=== PATIENT | male | born 1955 | race Caucasian/White ===

== ENCOUNTER → 2017-06-06 | Outpatient (CLI) | payer SELFPAY ==
[2017-06-06 13:29] LABS: BASOPHILS # (AUTO) 0.1 X10^3/uL (0.0-0.1); BASOPHILS % (AUTO) 1.6 % (0.2-1.0); EOSINOPHILS # (AUTO) 0.7 x10^3/uL (0.0-0.2); EOSINOPHILS % (AUTO) 7.2 % (0.9-2.9); HEMATOCRIT 44.3 % (42.0-54.0); HEMOGLOBIN 15.3 g/dL (13.5-18.0); LYMPHOCYTES # (AUTO) 2.2 X10^3/uL (1.3-2.9); LYMPHOCYTES % (AUTO) 22.9 % (21.0-51.0); MEAN CORPUSCULAR HEMOGLOBIN 32.5 pg (27.0-34.0); MEAN CORPUSCULAR HGB CONC 34.5 g/dL (33.0-35.0); MEAN CORPUSCULAR VOLUME 94.3 fL (80.0-100.0); MEAN PLATELET VOLUME 8.7 fL (7.4-11.0); MONOCYTES # (AUTO) 0.5 x10^3/uL (0.3-0.8); MONOCYTES % (AUTO) 4.9 % (0.0-13.0); NEUTROPHILS % (AUTO) 63.4 % (42.0-75.0); PLATELET COUNT 216 X10^3/uL (150.0-450.0); RED CELL DISTRIBUTION WIDTH 13.1 % (11.6-16.5); WHITE BLOOD COUNT 9.5 X10^3/uL (3.6-10.0)
[2017-06-06 13:43] LABS: ALANINE AMINOTRANSFERASE 19 Units/L (12-78); ALBUMIN 4.4 g/dL (3.4-5.0); ALKALINE PHOSPHATASE 50 Units/L (46-116); ASPARTATE AMINO TRANSFERASE 13 Units/L (15-37); BLOOD UREA NITROGEN 18 mg/dL (7-18); CALCIUM 9.6 mg/dL (8.5-10.1); CARBON DIOXIDE 27.4 mmol/L (21-32); CHLORIDE 103 mmol/L (98-107); CHOL/HDL RATIO 5.1 (0.0-5.0); CHOLESTEROL 216 mg/dL (0-200); CREATININE 1.01 mg/dL (0.70-1.30); HDL CHOLESTEROL 42 mg/dL (40-60); SODIUM 139 mmol/L (136-145); TOTAL PROTEIN 7.6 g/dL (6.4-8.2); TRIGLYCERIDES 90 mg/dL (0-150); eGFR BLACK RACES > 60 (>60); eGFR NON BLACK RACES > 60 (>60)
[2017-06-06 13:56] LABS: TOTAL PSA 0.53 ng/mL (0.13-4.0)
[2017-06-06 13:59] LABS: HEMOGLOBIN A1C 5.7 % (4.5-6.2)
[2017-06-06 14:02] LABS: ERYTHROCYTE SEDIMENTATION RATE 2 MM/HOUR (0-15)
--- NOTE | 2017-06-06 14:23 | RAD ---
Examination: Abdomen with PA chest History: Abdominal pain Findings: PA chest: Normal heart size with clear lungs and pleural spaces. Abdomen: Supine and upright views demonstrate slight scattered distention of segments of small bowel and colon. The appearance does not suggest distal obstruction. No free air, ascites, mass formation i dentified. There is a 4.0 mm calcification in the left pelvis. Impression: 1. Negative PA chest. 2. Intestinal gas pattern consistent with ileus. 3. Solitary left pelvic calcification may be vascular, although a distal left ureteral stone could pr oduce similar findings. Correlate clinically. Reported By:
--- NOTE | 2017-06-06 16:21 | CT ---
History: Acute abdominal pain Study: CT of the abdomen and pelvis with 100 mL Omnipaque 350 and oral contrast Sagittal and coronal reformations were provided. Comparison: None Findings: There is a small cyst dorsally from the upper pole left kidney. There is no hydronephrosis. The liver and spleen and pancreas and adrenal glands are unremarkable. The gallbladder is unremarkab le. There is no biliary dilatation. The prostate measures at least 5.6 cm transverse diameter elevati ng the base of the bladder to the left of midline. There are moderate degenerative changes of the low er lumbar spine. There is no ascites or adenopathy or bowel distention. Impression: No acute disease demonstrated Reported By:
== END | disposition home or self-care (01) | DRG 392 ==
LOC: LAB 13:04
PROVIDERS: ATTEND Nurse Practitioner Family
DX: R10.84 Generalized abdominal pain (principal); R10.2 Pelvic and perineal pain; R35.8 Other polyuria; R30.0 Dysuria; Z83.3 Family history of diabetes mellitus
CPT/HCPCS: 36415; 74022; 74177; 80053; 80061; 83036; 84153; 85025; 85610; 85652; 85730; 86140; A4222

== ENCOUNTER → 2017-06-13 | Outpatient (CLI) | payer SELFPAY | LOC: LAB 18:33 | PROVIDERS: ATTEND Specialist | DX: N39.0 Urinary tract infection, site not specified (principal); M10.9 Gout, unspecified | CPT/HCPCS: 36415; 84550; 87086 ==

== ENCOUNTER 2017-07-27 10:04 | Emergency (ER) | payer SELFPAY ==
[2017-07-27 10:14] VITALS: BMI 22.1
[2017-07-27] MEDS ORDERED: NS 1000 ML 1,000 ML IV ONE ×2 (10:21→11:39)
[2017-07-27] MEDS ORDERED: ZOFRAN INJ 4 MG VIAL IVP ONE (10:22)
[2017-07-27] MEDS ORDERED: NS 1000 ML 1,000 ML ONE ×3 (10:22→13:22)
--- NOTE | 2017-07-27 10:26 | DR.WEAKNES ---
HPI - Time Seen Time seen: 10:20 - Primary Care Physician Primary Care Physician: HANNAH FARMER - Complaints Chief Complaint Doctors Comments: Patient had an appointment with his urologist this AM but decided to bring him the ED for evaluation of weakness of one month or longer in duration. He is being evaluated by his urologist for prostatic hypertrohy. He admits to difficulity in urinating. Patient states that he hurts all over Chief Complaint:: PT TO ER VIA EMS WITH C/O BEING WEAK , HURTING ALL OVER, AND HAVING A HARD TIME URINTING AND HAVING A BM AND THAT THIS HAS BEEN GOING ON FOR 2 MONTHS AND THAT HE IS AT THE POINT OF NO RETURN PT C/O SMOKING AND DRINKING AND HE HAS NOT DONE SO IN 2 MONTHS.. Self Treatment fo Chief Complaint: PTS FAMILY FOUND HIM NOT TO BE EATING AND HE MAY BE DEHYDRATED AND EMS WAS CALLED ,, - Source History Provided: Patient, EMS - Mode of Arrival Mode of Arrival: EMS - Timing Onset of Chief Complaint: 05/27/17 Since onset, symptoms are:: Worsened Symptom Onset: Unknown Onset of Symptoms Start Date: 07/11/17 - Duration Duration: Since Onset (two months) - Context Symptoms: Weakness History of: None Stroke Symptoms: None - Location Weakness Location: Generalized PMH - PMH Past Medical History: Yes Past Medical History Comment: PROSTATE .. Past Surgical History: No - Family History History of Family Medical Conditions: No - Social History Does patient currently use any type of tobacco product: No Have you used tobacco products in the last 12 months: Yes Type of Tobacco Use: Cigarettes Does any household member use tobacco: No Alcohol Use: None Do you use any recreational Drugs:: Yes Lives With: Alone Lives Where: Home - infectious screening In the last 2 months have you had wt loss of >10#?: NO Have you had fever, night sweats or hemotysis?: No Have you traveled outside the country in the last 6 months?: No Isolation: Standard ROS - Review of Systems Constitutional: Weakness Eyes: No Symptoms Reported ENTM: No Symptoms Reported Respiratoy: No Symptoms Reported Cardiovascular: No Symptoms Reported Gastrointestinal/Abdominal: No Symptoms Reported Genitourinary: No Symptoms Reported Neurological: No Symptoms Reported Musculoskeletal: No Symptoms Reported Integumentary: No Symptoms Reported, Other (dry) Hematologic/Lymphatic: No Symptoms Reported Endocrine: No Symptoms Reported Psychiatric: No Symptoms Reported All Other Systems: Reviewed and Negative PE - Vital Signs Vitals: Temperature 96.0 F Pulse Rate [Left Brachial] 71 Pulse Rate 82 Respiratory Rate 16 Blood Pressure [Right Arm] 141/68 Blood Pressure [Left Arm] 173/86 Blood Pressure 158/78 O2 Sat by Pulse Oximetry 100 - General General Appearance: Alert, Anxious - Head Head Exam: Normal Inspection, Atraumatic Head Exam Physical: Laceration - Eyes Eye exam: Normal Appearance Eyelids: Normal Inspection: Bilateral Pupils: Regular, Round: Bilateral Sclera/Conjunctival: Normal Inspection: Bilateral Anterior Chamber: Normal Inspection: Bilateral - ENT ENT Exam: Mucous Membranes Dry Mouth Exam: Normal Inspection - Neck Neck Exam: Normal Inspection, Full ROM - Chest Chest Inspection: Normal Inspection, Symmetric Chest Wall Rise - Respiratory Respiratory Exam: Normal Lung Sounds Bilat Respiratory Exam: Bilateral Clear to Auscultation - Cardiovascular Cardiovascular Exam: Regular Rate, Normal Rhythm - Abdominal Exam Abdominal Exam: Normal Inspection, Normal Bowel Sounds Abdominal Tenderness: negative: RUQ, RLQ, LUQ, LLQ, Epigastrium, Suprapubic, Diffuse, Mild, Moderate, Severe, Other - Extremities Extremities Exam: Normal Inspection, Full ROM - Back Back Exam: Normal Inspection, Full ROM - Neurologic Neurological Exam: Alert, Oriented X3, CN II-XII Intact Cranial Nerve Exam: EOM Function (II, III, IV, ): Normal Course - Treatment Treatment: Emergent treatment of hyperkalemia - Reevaluation 1st: Improved - Consultation Called: 12:10 (Dr Larry Segovia agreed to accept for transfer) Call Returned: 11:50 (Dr King agreed to treat patients ARF) - Education/Counseling Educated On: Treatment, Diagnosis, Prognosis ROR - Labs Reviewed Laboratory Results Reviewed?: Yes (Influenza negative) Result Diagrams: 07/27/17 10:40 07/27/17 10:40 Laboratory: WBC 13.1 X10^3/uL (3.6-10.0) H 07/27/17 10:40 RBC 4.15 X10^6/uL (4.7-6.0) L 07/27/17 10:40 Hgb 12.3 g/dL (13.5-18.0) L 07/27/17 10:40 Hct 36.9 % (42.0-54.0) L 07/27/17 10:40 MCV 88.8 fL (80.0-100.0) 07/27/17 10:40 MCH 29.6 pg (27.0-34.0) 07/27/17 10:40 MCHC 33.4 g/dL (33.0-35.0) 07/27/17 10:40 RDW 14.0 % (11.6-16.5) 07/27/17 10:40 Plt Count 213 X10^3/uL (150.0-450.0) 07/27/17 10:40 MPV 8.2 fL (7.4-11.0) 07/27/17 10:40 Neut % 89.6 % (42.0-75.0) H 07/27/17 10:40 Lymph % 3.8 % (21.0-51.0) L 07/27/17 10:40 Mccone % 5.6 % (0.0-13.0) 07/27/17 10:40 Eos % 0.5 % (0.9-2.9) L 07/27/17 10:40 Baso % 0.5 % (0.2-1.0) 07/27/17 10:40 Neut # 11.7 x10^3/uL (2.2-4.8) H 07/27/17 10:40 Lymph # 0.5 X10^3/uL (1.3-2.9) L 07/27/17 10:40 Mccone # 0.7 x10^3/uL (0.3-0.8) 07/27/17 10:40 Eos # 0.1 x10^3/uL (0.0-0.2) 07/27/17 10:40 Baso # 0.1 X10^3/uL (0.0-0.1) 07/27/17 10:40 Absolute Nucleated RBC 0.0 /100WBC 07/27/17 10:40 INR Target Range - 07/27/17 10:40 INR 1.13 (0.8-1.3) 07/27/17 10:40 PTT 30.8 SECONDS (22.9-36.5) 07/27/17 10:40 PTT Comment - 07/27/17 10:40 Sodium 129 mmol/L (136-145) L 07/27/17 10:40 Corrected Sodium 129 mmol/L (136-145) L 07/27/17 10:40 Potassium 9.4 mmol/L (3.5-5.1) H* 07/27/17 10:40 Chloride 93 mmol/L (98-107) L 07/27/17 10:40 Carbon Dioxide 9.2 mmol/L (21-32) L* 07/27/17 10:40 BUN 255 mg/dL (7-18) H 07/27/17 10:40 Creatinine 33.43 mg/dL (0.70-1.30) H 07/27/17 10:40 Est GFR (MDRD) Af Amer 2 (>60) L 07/27/17 10:40 Est GFR (MDRD) Non-Af 1 (>60) L 07/27/17 10:40 Glucose 114 mg/dL (65-99) H 07/27/17 10:40 Calcium 9.2 mg/dL (8.5-10.1) 07/27/17 10:40 Corrected Calcium 9.8 mg/dL (8.5-10.1) 07/27/17 10:40 Magnesium 3.9 mg/dL (1.7-2.9) H 07/27/17 10:40 Total Bilirubin 0.60 mg/dL (0.2-1.0) 07/27/17 10:40 AST 15 Units/L (15-37) 07/27/17 10:40 ALT 21 Units/L (12-78) 07/27/17 10:40 Alkaline Phosphatase 61 Units/L (46-116) 07/27/17 10:40 Creatine Kinase 112 Units/L (39-308) 07/27/17 10:40 CK-MB (CK-2) 3.7 ng/mL (0-4.0) 07/27/17 10:40 CK/CKMB % Calc 3.3 % (<4) 07/27/17 10:40 Troponin I < 0.02 ng/mL (0-1.5) 07/27/17 10:40 C-Reactive Protein 54.50 mg/L (0-3.0) H 07/27/17 10:40 Total Protein 7.6 g/dL (6.4-8.2) 07/27/17 10:40 Albumin 3.3 g/dL (3.4-5.0) L 07/27/17 10:40 Globulin 4.3 g/dL (2.5-4.5) 07/27/17 10:40 Albumin/Globulin Ratio 0.8 Ratio (1.1-2.1) L 07/27/17 10:40 Influenza Type A (PCR) Negative (NEGATIVE) 07/27/17 10:30 Influenza Type B (PCR) Negative (NEGATIVE) 07/27/17 10:30 - XRAY XRAY Interpreted by: Radiologist (Chest: No acute abnormality noted.) - Diagnosis Discharge Problem: Hyperkalemia, Hyponatremia, Metabolic acidemia Acute renal failure Qualifiers: Acute renal failure type: unspecified Qualified Code(s): N17.9 - Acute kidney failure, unspecified - Discharge Plan Condition: Stable - Follow ups/Referrals Follow ups/Referrals: SHELBY ELLIS [Primary Care Provider] - 3 days - Instructions
[2017-07-27] MEDS ORDERED: ZOFRAN INJ 4 MG VIAL ONE (10:41)
--- NOTE | 2017-07-27 10:45 | RAD ---
HISTORY: Body aches. Weakness. Study: AP portable chest Comparison: 06/06/2017 Findings: The lungs are clear. The heart size is normal. No acute bony abnormalities are identified. Promine nt skin folds overlie the upper chest IMPRESSION: 1. No radiographic evidence of acute cardiopulmonary disease or significant change is noted when com pared to the prior examination. Reported By:
[2017-07-27 10:56] LABS: BASOPHILS # (AUTO) 0.1 X10^3/uL (0.0-0.1); BASOPHILS % (AUTO) 0.5 % (0.2-1.0); EOSINOPHILS # (AUTO) 0.1 x10^3/uL (0.0-0.2); EOSINOPHILS % (AUTO) 0.5 % (0.9-2.9); HEMATOCRIT 36.9 % (42.0-54.0); HEMOGLOBIN 12.3 g/dL (13.5-18.0); LYMPHOCYTES # (AUTO) 0.5 X10^3/uL (1.3-2.9); LYMPHOCYTES % (AUTO) 3.8 % (21.0-51.0); MEAN CORPUSCULAR HEMOGLOBIN 29.6 pg (27.0-34.0); MEAN CORPUSCULAR HGB CONC 33.4 g/dL (33.0-35.0); MEAN CORPUSCULAR VOLUME 88.8 fL (80.0-100.0); MEAN PLATELET VOLUME 8.2 fL (7.4-11.0); MONOCYTES # (AUTO) 0.7 x10^3/uL (0.3-0.8); MONOCYTES % (AUTO) 5.6 % (0.0-13.0); NEUTROPHILS # (AUTO) 11.7 x10^3/uL (2.2-4.8); NEUTROPHILS % (AUTO) 89.6 % (42.0-75.0); PLATELET COUNT 213 X10^3/uL (150.0-450.0); RED BLOOD COUNT 4.15 X10^6/uL (4.7-6.0); WHITE BLOOD COUNT 13.1 X10^3/uL (3.6-10.0)
[2017-07-27 11:14] LABS: ALANINE AMINOTRANSFERASE 21 Units/L (12-78); ALBUMIN 3.3 g/dL (3.4-5.0); ALKALINE PHOSPHATASE 61 Units/L (46-116); ASPARTATE AMINO TRANSFERASE 15 Units/L (15-37); CALCIUM 9.2 mg/dL (8.5-10.1); CHLORIDE 93 mmol/L (98-107); CKMB % 3.3 % (<4); COR CA(FOR HYPOALB) 9.8 mg/dL (8.5-10.1); COR NA(FOR HYPERGLY) 129 mmol/L (136-145); CREATINE KINASE 112 Units/L (39-308); CREATINE KINASE MB 3.7 ng/mL (0-4.0); MAGNESIUM 3.9 mg/dL (1.7-2.9); SODIUM 129 mmol/L (136-145); TOTAL PROTEIN 7.6 g/dL (6.4-8.2); TROPONIN I < 0.02 ng/mL (0-1.5)
[2017-07-27 11:25] LABS: BLOOD UREA NITROGEN 255 mg/dL (7-18); CARBON DIOXIDE 9.2 mmol/L (21-32)
[2017-07-27 11:26] LABS: CREATININE 33.43 mg/dL (0.70-1.30); eGFR BLACK RACES 2 (>60); eGFR NON BLACK RACES 1 (>60)
[2017-07-27] MEDS ORDERED: CALCIUM GLUCONATE 10% IV ONE ×2 (11:31→11:38)
[2017-07-27] MEDS ORDERED: D50W ABBOJECT SYR IV ONE (11:31)
[2017-07-27] MEDS ORDERED: PROVENTIL NEB TX 0.083% 2.5MG/ 3ML NEB ONE (11:34)
[2017-07-27] MEDS ORDERED: PROVENTIL NEB TX 0.083% 2.5MG/ 3ML ONE (11:35)
[2017-07-27] MEDS ORDERED: HumuLIN R IV STA (11:35)
[2017-07-27] MEDS ORDERED: LASIX IVP ONE ×2 (11:38→12:11)
[2017-07-27] MEDS ORDERED: D50W ABBOJECT SYR ONE (11:38)
[2017-07-27] MEDS ORDERED: HumuLIN R ONE (11:39)
[2017-07-27] MEDS ORDERED: XYLOCAINE VISCOUS ONE (11:58)
[2017-07-27] MEDS ORDERED: XYLOCAINE VISCOUS MT ONE (11:58)
[2017-07-27 12:18] LABS: BILIRUBIN,URINE NEGATIVE (NEGATIVE); BLOOD/HEMOGLOBIN,URINE 5+ (NEGATIVE); GLUCOSE, URINE NEGATIVE (NEGATIVE); KETONES,URINE NEGATIVE (NEGATIVE); LEUKOCYTE ESTERASE ,URINE 1+ (NEGATIVE); NITRITES,URINE NEGATIVE (NEGATIVE); PROTEIN,URINE NEGATIVE (NEGATIVE); UROBILINOGEN,URINE NORMAL (NORMAL)
[2017-07-27 12:23] LABS: APPEARANCE,URINE HAZY (CLEAR); BACTERIA,URINE NEGATIVE /HPF (NEGATIVE); COLOR,URINE YELLOW (YELLOW); RBC,URINE 20-25 /HPF (NEGATIVE); SQUAMOUS EPITHELIAL CELL,UR NEGATIVE /HPF (NEGATIVE)
[2017-07-27 13:07] VITALS: BP 132/77
[2017-07-27] MEDS ORDERED: SNACK - Diabetic Appropriate PO SCH (20:00)
== END 2017-07-27 13:34 | disposition short-term general hospital (02) ==
LOC: ER 10:04
DX: E87.5 Hyperkalemia (principal); E87.1 Hypo-osmolality and hyponatremia; P19.9 Metabolic acidemia in newborn, unspecified; N17.9 Acute kidney failure, unspecified
CPT/HCPCS: 36415; 51702; 71045; 80053; 81001; 82550; 82553; 83735; 84484; 85025; 85610; 85730; 86140; 87502; 93005; 93010; 96365; 96367; 96374; 96375; 99284; 99285; J0610; J1815; J1940; J2405; J3490; J7613

== ENCOUNTER → 2017-08-12 | Outpatient (CLI) | payer SELFPAY ==
[2017-07-27 13:07] VITALS: BP 132/77
[2017-08-12 17:46] LABS: BASOPHILS # (AUTO) 0.1 X10^3/uL (0.0-0.1); EOSINOPHILS # (AUTO) 0.1 x10^3/uL (0.0-0.2); EOSINOPHILS % (AUTO) 0.7 % (0.9-2.9); HEMATOCRIT 33.1 % (42.0-54.0); HEMOGLOBIN 11.2 g/dL (13.5-18.0); LYMPHOCYTES # (AUTO) 1.9 X10^3/uL (1.3-2.9); LYMPHOCYTES % (AUTO) 18.4 % (21.0-51.0); MEAN CORPUSCULAR HEMOGLOBIN 29.3 pg (27.0-34.0); MEAN CORPUSCULAR HGB CONC 33.7 g/dL (33.0-35.0); MEAN CORPUSCULAR VOLUME 86.8 fL (80.0-100.0); MEAN PLATELET VOLUME 7.2 fL (7.4-11.0); MONOCYTES # (AUTO) 0.8 x10^3/uL (0.3-0.8); MONOCYTES % (AUTO) 8.2 % (0.0-13.0); NEUTROPHILS # (AUTO) 7.3 x10^3/uL (2.2-4.8); NEUTROPHILS % (AUTO) 71.7 % (42.0-75.0); PLATELET COUNT 787 X10^3/uL (150.0-450.0); RED BLOOD COUNT 3.81 X10^6/uL (4.7-6.0); RED CELL DISTRIBUTION WIDTH 13.5 % (11.6-16.5); WHITE BLOOD COUNT 10.2 X10^3/uL (3.6-10.0)
[2017-08-12 17:54] LABS: PLATELET MORPHOLOGY COMMENT ABNORMAL (NORMAL)
[2017-08-12 17:59] LABS: ALANINE AMINOTRANSFERASE 64 Units/L (12-78); ALBUMIN 2.8 g/dL (3.4-5.0); ALKALINE PHOSPHATASE 175 Units/L (46-116); ASPARTATE AMINO TRANSFERASE 28 Units/L (15-37); BLOOD UREA NITROGEN 15 mg/dL (7-18); CALCIUM 9.1 mg/dL (8.5-10.1); CHLORIDE 101 mmol/L (98-107); COR CA(FOR HYPOALB) 10.1 mg/dL (8.5-10.1); COR NA(FOR HYPERGLY) 138 mmol/L (136-145); CREATININE 1.08 mg/dL (0.70-1.30); SODIUM 138 mmol/L (136-145); TOTAL PROTEIN 7.8 g/dL (6.4-8.2); eGFR BLACK RACES > 60 (>60); eGFR NON BLACK RACES > 60 (>60)
== END ==
LOC: LAB 17:28
PROVIDERS: ATTEND Internal Medicine Hematology & Oncology
DX: C61 Malignant neoplasm of prostate (principal)
CPT/HCPCS: 36415; 80053; 85025

== ENCOUNTER 2017-10-13 09:26 | Inpatient (IN) | payer OTHER ==
[2017-10-13] MEDS ORDERED: ATIVAN TAB 1 MG PO PRN (11:37)
[2017-10-13] MEDS ORDERED: DULCOLAX SUPPOSITORY 10 MG RECTAL PRN (11:39)
[2017-10-13] MEDS ORDERED: LEVSIN ORAL DROPS PO PRN (11:46)
[2017-10-13] MEDS ORDERED: ROXANOL ORAL SOLN 20MG UDC PO PRN (11:48)
[2017-10-13] MEDS ORDERED: PHENERGAN SUPP 25 MG PR PRN (11:58)
[2017-10-13 11:59] VITALS: BMI 16.8
[2017-10-13] MEDS ORDERED: TYLENOL SUPP 650 MG PR PRN (11:59)
[2017-10-13] MEDS: PATIENT'S HOME MEDICATION PO PRN ×4 (12:35→18:35)
[2017-10-13] MEDS ORDERED: ELAVIL PO SCH (13:00)
[2017-10-13] MEDS ORDERED: PATIENT'S HOME MEDICATION PO PRN ×2 (13:00)
[2017-10-13] MEDS ORDERED: PATIENT'S HOME MEDICATION PO SCH (21:00)
[2017-10-13] MEDS: PATIENT'S HOME MEDICATION PO SCH ×2 (21:06)
[2017-10-14] MEDS: PATIENT'S HOME MEDICATION PO PRN ×2 (03:50→11:32)
[2017-10-14] MEDS: PATIENT'S HOME MEDICATION PO SCH ×2 (08:57)
[2017-10-14] MEDS ORDERED: HYOSCYAMINE SULFATE PO PRN (12:24)
[2017-10-14] MEDS ORDERED: TYLENOL SUPP 650 MG RECTAL PRN (12:24)
[2017-10-14] MEDS ORDERED: ATIVAN TAB 0.5 MG PO PRN (12:24)
[2017-10-14] MEDS ORDERED: DULCOLAX SUPPOSITORY 10 MG RECTAL PRN (12:24)
[2017-10-14] MEDS ORDERED: PHENERGAN SUPP 25 MG RECTAL PRN (12:24)
[2017-10-14] MEDS: ROXANOL ORAL SOLN 20MG UDC PO PRN ×3 (14:00→18:39)
[2017-10-14] MEDS: M.S. CONTIN 30 MG EXTENDED RELEASE PO SCH (20:46)
[2017-10-14] MEDS: DECADRON TAB PO SCH (20:46)
[2017-10-14] MEDS ORDERED: ELAVIL PO SCH (21:00)
[2017-10-15] MEDS: ROXANOL ORAL SOLN 20MG UDC PO PRN ×3 (04:34→12:59)
[2017-10-15] MEDS: DECADRON TAB PO SCH (09:26)
[2017-10-15] MEDS: M.S. CONTIN 30 MG EXTENDED RELEASE PO SCH (09:26)
[2017-10-15] MEDS ORDERED: COLACE CAP 100 MG PO PRN (10:10)
[2017-10-15] MEDS ORDERED: MILK OF MAGNESIA PO PRN (10:31)
[2017-10-15] MEDS ORDERED: PATIENT'S HOME MEDICATION PO PRN (15:00)
[2017-10-15] MEDS: PATIENT'S HOME MEDICATION PO PRN ×3 (15:15→22:39)
[2017-10-15] MEDS: PATIENT'S HOME MEDICATION PO SCH ×2 (20:27→20:29)
[2017-10-15] MEDS ORDERED: PATIENT'S HOME MEDICATION PO SCH (21:00)
[2017-10-16] MEDS: PATIENT'S HOME MEDICATION PO PRN ×4 (02:18→13:20)
[2017-10-16 06:20] LABS: BASOPHILS % (AUTO) 0.2 % (0.2-1.0); HEMATOCRIT 24.7 % (42.0-54.0); HEMOGLOBIN 8.3 g/dL (13.5-18.0); LYMPHOCYTES # (AUTO) 0.2 X10^3/uL (1.3-2.9); LYMPHOCYTES % (AUTO) 2.5 % (21.0-51.0); MEAN CORPUSCULAR HEMOGLOBIN 28.1 pg (27.0-34.0); MEAN CORPUSCULAR HGB CONC 33.5 g/dL (33.0-35.0); MEAN PLATELET VOLUME 8.6 fL (7.4-11.0); MONOCYTES # (AUTO) 0.6 x10^3/uL (0.3-0.8); MONOCYTES % (AUTO) 7.6 % (0.0-13.0); NEUTROPHILS # (AUTO) 7.4 x10^3/uL (2.2-4.8); NEUTROPHILS % (AUTO) 89.7 % (42.0-75.0); PLATELET COUNT 124 X10^3/uL (150.0-450.0); RED BLOOD COUNT 2.94 X10^6/uL (4.7-6.0); RED CELL DISTRIBUTION WIDTH 17.2 % (11.6-16.5); WHITE BLOOD COUNT 8.2 X10^3/uL (3.6-10.0)
[2017-10-16 06:44] LABS: ALANINE AMINOTRANSFERASE 40 Units/L (12-78); ALBUMIN 2.5 g/dL (3.4-5.0); ALKALINE PHOSPHATASE 513 Units/L (46-116); ASPARTATE AMINO TRANSFERASE 19 Units/L (15-37); BLOOD UREA NITROGEN 23 mg/dL (7-18); CALCIUM 7.9 mg/dL (8.5-10.1); CARBON DIOXIDE 22.9 mmol/L (21-32); CHLORIDE 104 mmol/L (98-107); COR CA(FOR HYPOALB) 9.1 mg/dL (8.5-10.1); CREATININE 0.78 mg/dL (0.70-1.30); SODIUM 136 mmol/L (136-145); TOTAL PROTEIN 5.7 g/dL (6.4-8.2); eGFR BLACK RACES > 60 (>60); eGFR NON BLACK RACES > 60 (>60)
[2017-10-16 06:46] LABS: BAND NEUTROPHILS % 3 % (0-10)
[2017-10-16 06:49] LABS: PLATELET MORPHOLOGY COMMENT NORMAL (NORMAL)
[2017-10-16 06:50] LABS: HYPOCHROMASIA SLIGHT
[2017-10-16] MEDS: PATIENT'S HOME MEDICATION PO SCH ×2 (08:43)
--- NOTE | 2017-10-16 10:26 | PCM.PROG ---
Progress Note - Progress Note for Day of Date: 10/16/17 - Subjective Subjective: WAS ADMITTED FROM THE HOSPICE HOUSE IN [place], [place] FOR GENERALIZED WEAKNESS, POOR APPETITIE, AND INTRACTABLE PAIN RELATED TO METASTATIC PROSTACE CANCER WITH BRAIN, LIVER, AND LUNG METS. TODAY, HE IS ALERT AND ORIENTED, LYING IN BED ON MORNING ROUNDS. HE CONTINUES WITH COMPLAINTS OF GENERALIZED WEAKNESS AND GENERALIZED PAIN. PATIENT REPORTS THAT PAIN IS TOLERABLE AT THIS TIME. ON EXAMINATION, HEART IS REGULAR IN RATE AND RHYTHM. BILATERAL LUNGS ARE NOTED WITH DIMINISHED LUNG SOUNDS THROGHOUT. DECREASED SKIN TUGOR IS NOTED. ABDOMEN IS FLAT, SOFT, AND NON-TENDER WITH NORMAL BOWEL SOUNDS NOTED IN ALL QUADRANTS. THERE IS GENERALIZED WEAKNESS TO ALL EXTREMITIES NOTED. HIS VITALS THIS MORNING WERE 98.3-75-20-98%-119/66. LABS WERE OBTAINED. ABNORMAL LAB VALUES INCLUDE THE FOLLOWING: RBC 2.94, HGB 8.3, HCT 24.7, PLT COUNT 124, BUN 23, GLUCOSE 104, CALCIUM 7.9, ALKALINE PHOSPHATASE 513, TOTAL PROTEIN 5.7, ALBUMIN 2.5. WE WILL CONTINUE WITH CURRENT PLAN OF CARE AND PAIN CONTROL TODAY AND HAVE CONSULT WITH PATIENT WHILE HE IS HERE. OTHERWISE, WE WILL FOLLOW UP WITH AM LABS AND CONTINUE TO MONITOR PATIENT. - Past Medical Family Social History Past Med/Fam/Surg Hx: No changes since H&P Allergies: Allergies No Known Drug Allergies Allergy (Verified 07/27/17 10:08) - Review of Systems ROS: No change since H&P - Vital Signs and I&O's Vital Signs: Temperature 98.3 F Pulse Rate [Right Brachial] 75 Respiratory Rate 20 Blood Pressure [Right Arm] 119/66 Blood Pressure [Left Arm] 132/77 Blood Pressure 132/77 O2 Sat by Pulse Oximetry 98 Intake and Output: Intake & Output 10/13/17 10/14/17 10/15/17 10/16/17 11:59 11:59 11:59 11:59 Intake Total 1920 1220 1100 Output Total 2383 893 5096 Balance 210 520 -575 - Physical Exam Oriented: Normal Eyes: Normal Ear: Normal Nose: Normal Throat: Normal Respiratory: Generalized, Diminished Cardiovascular: Normal : Normal Auscultation: Bowel Sounds: Normal Palpation: Normal Tenderness: Normal Skin: Normal Musculoskeletal: Tender Psychiatric: Normal Mood Description: Calm Affect: Normal Speech Pattern: Clear, Appropriate - Laboratory and Diagnostics Result Diagrams: 10/16/17 05:09 10/16/17 05:09 Labs: Laboratory WBC 8.2 X10^3/uL (3.6-10.0) 10/16/17 05:09 RBC 2.94 X10^6/uL (4.7-6.0) L 10/16/17 05:09 Hgb 8.3 g/dL (13.5-18.0) L 10/16/17 05:09 Hct 24.7 % (42.0-54.0) L 10/16/17 05:09 MCV 84.0 fL (80.0-100.0) 10/16/17 05:09 MCH 28.1 pg (27.0-34.0) 10/16/17 05:09 MCHC 33.5 g/dL (33.0-35.0) 10/16/17 05:09 RDW 17.2 % (11.6-16.5) H 10/16/17 05:09 Plt Count 124 X10^3/uL (150.0-450.0) L 10/16/17 05:09 Plt Count Comment Adequate (ADEQUATE) 10/16/17 05:09 MPV 8.6 fL (7.4-11.0) 10/16/17 05:09 Neut % (Auto) 89.7 % (42.0-75.0) H 10/16/17 05:09 Lymph % (Auto) 2.5 % (21.0-51.0) L 10/16/17 05:09 Sutter % (Auto) 7.6 % (0.0-13.0) 10/16/17 05:09 Eos % (Auto) 0.0 % (0.9-2.9) L 10/16/17 05:09 Baso % (Auto) 0.2 % (0.2-1.0) 10/16/17 05:09 Neut # (Auto) 7.4 x10^3/uL (2.2-4.8) H 10/16/17 05:09 Lymph # (Auto) 0.2 X10^3/uL (1.3-2.9) L 10/16/17 05:09 Sutter # (Auto) 0.6 x10^3/uL (0.3-0.8) 10/16/17 05:09 Eos # (Auto) 0.0 x10^3/uL (0.0-0.2) 10/16/17 05:09 Baso # (Auto) 0.0 X10^3/uL (0.0-0.1) 10/16/17 05:09 Absolute Nucleated RBC 0.1 /100WBC 10/16/17 05:09 Total Counted 100 10/16/17 05:09 Neutrophils % (Manual) 94 % (39-76) H 10/16/17 05:09 Band Neutrophils % 3 % (0-10) 10/16/17 05:09 Lymphocytes % (Manual) 2 % (13-43) L 10/16/17 05:09 Monocytes % (Manual) 1 % (4-9) L 10/16/17 05:09 Plt Morphology Comment Normal (NORMAL) 10/16/17 05:09 RBC Morphology Normal (NORMAL) 10/16/17 05:09 Hypochromasia Slight A 10/16/17 05:09 Sodium 136 mmol/L (136-145) 10/16/17 05:09 Corrected Sodium TNP 10/16/17 05:09 Potassium 4.3 mmol/L (3.5-5.1) 10/16/17 05:09 Chloride 104 mmol/L (98-107) 10/16/17 05:09 Carbon Dioxide 22.9 mmol/L (21-32) 10/16/17 05:09 BUN 23 mg/dL (7-18) H 10/16/17 05:09 Creatinine 0.78 mg/dL (0.70-1.30) 10/16/17 05:09 Est GFR (MDRD) Af Amer > 60 (>60) 10/16/17 05:09 Est GFR (MDRD) Non-Af > 60 (>60) 10/16/17 05:09 Glucose 104 mg/dL (65-99) H 10/16/17 05:09 Calcium 7.9 mg/dL (8.5-10.1) L 10/16/17 05:09 Corrected Calcium 9.1 mg/dL (8.5-10.1) 10/16/17 05:09 Total Bilirubin 0.40 mg/dL (0.2-1.0) 10/16/17 05:09 AST 19 Units/L (15-37) 10/16/17 05:09 ALT 40 Units/L (12-78) 10/16/17 05:09 Alkaline Phosphatase 513 Units/L (46-116) H 10/16/17 05:09 Total Protein 5.7 g/dL (6.4-8.2) L 10/16/17 05:09 Albumin 2.5 g/dL (3.4-5.0) L 10/16/17 05:09 Globulin 3.2 g/dL (2.5-4.5) 10/16/17 05:09 Albumin/Globulin Ratio 0.8 Ratio (1.1-2.1) L 10/16/17 05:09 - Plan (1) Prostate cancer, primary, with metastasis from prostate to other site Status: Acute Plan: CONSULT , CONTINUE WITH PAIN CONTROL (2) Generalized weakness Status: Acute Plan: PROCALAMINE AT 40ML/HR, ALBUMIN 25% IV DAILY, CONTINUE TO MONITOR (3) Protein calorie malnutrition Status: Acute Qualifiers: Protein-calorie malnutrition severity: moderate Qualified Code(s): E44.0 - Moderate protein-calorie malnutrition Plan: PROCALAMINE AT 40ML/HR, ALBUMIN 25% IV DAILY, CONTINUE TO MONITOR (4) Depression Status: Acute Qualifiers: Depression Type: major depressive disorder Major depression recurrence: recurrent Active/Remission status: currently active Major depression episode severity: mild Qualified Code(s): F33.0 - Major depressive disorder, recurrent, mild Plan: CONTINUE ELAVIL, CONTINUE ATIVAN, CONTINUE TO MONITOR
[2017-10-16] MEDS: ALBUMIN HUMAN 25%- 100ML 100 ML IV SCH (11:00)
[2017-10-16] MEDS ORDERED: PROCALAMINE 3 % 1,000 ML IV SCH (11:00)
[2017-10-16] MEDS ORDERED: LEVSIN SYRUP PO PRN (13:56)
[2017-10-16] MEDS: ATIVAN TAB 0.5 MG PO PRN (14:34)
[2017-10-16] MEDS: ROXANOL ORAL SOLN 20MG UDC PO PRN (19:33)
[2017-10-16] MEDS: DECADRON TAB PO SCH (20:53)
[2017-10-16] MEDS ORDERED: ELAVIL PO SCH (21:00)
[2017-10-16] MEDS: M.S. CONTIN 30 MG EXTENDED RELEASE PO SCH (21:46)
[2017-10-17] MEDS: ROXANOL ORAL SOLN 20MG UDC PO PRN ×2 (00:18→13:10)
[2017-10-17 06:09] LABS: BASOPHILS % (AUTO) 0.2 % (0.2-1.0); EOSINOPHILS % (AUTO) 0.1 % (0.9-2.9); HEMATOCRIT 25.3 % (42.0-54.0); HEMOGLOBIN 8.6 g/dL (13.5-18.0); LYMPHOCYTES # (AUTO) 0.2 X10^3/uL (1.3-2.9); LYMPHOCYTES % (AUTO) 2.4 % (21.0-51.0); MEAN CORPUSCULAR HEMOGLOBIN 28.6 pg (27.0-34.0); MEAN CORPUSCULAR HGB CONC 34.1 g/dL (33.0-35.0); MEAN CORPUSCULAR VOLUME 84.1 fL (80.0-100.0); MEAN PLATELET VOLUME 8.7 fL (7.4-11.0); MONOCYTES # (AUTO) 0.7 x10^3/uL (0.3-0.8); NEUTROPHILS # (AUTO) 8.2 x10^3/uL (2.2-4.8); NEUTROPHILS % (AUTO) 89.3 % (42.0-75.0); PLATELET COUNT 134 X10^3/uL (150.0-450.0); RED BLOOD COUNT 3.01 X10^6/uL (4.7-6.0); RED CELL DISTRIBUTION WIDTH 17.4 % (11.6-16.5); WHITE BLOOD COUNT 9.2 X10^3/uL (3.6-10.0)
[2017-10-17 06:21] LABS: ALANINE AMINOTRANSFERASE 51 Units/L (12-78); ALBUMIN 3.1 g/dL (3.4-5.0); ALKALINE PHOSPHATASE 525 Units/L (46-116); ASPARTATE AMINO TRANSFERASE 21 Units/L (15-37); BLOOD UREA NITROGEN 29 mg/dL (7-18); CALCIUM 8.4 mg/dL (8.5-10.1); CARBON DIOXIDE 33.9 mmol/L (21-32); CHLORIDE 101 mmol/L (98-107); COR CA(FOR HYPOALB) 9.1 mg/dL (8.5-10.1); CREATININE 0.86 mg/dL (0.70-1.30); SODIUM 134 mmol/L (136-145); TOTAL PROTEIN 6.2 g/dL (6.4-8.2); eGFR BLACK RACES > 60 (>60); eGFR NON BLACK RACES > 60 (>60)
[2017-10-17 06:42] LABS: BAND NEUTROPHILS % 3 % (0-10); PLATELET MORPHOLOGY COMMENT NORMAL (NORMAL)
[2017-10-17 06:43] LABS: HYPOCHROMASIA SLIGHT
[2017-10-17] MEDS: ATIVAN TAB 0.5 MG PO PRN (08:20)
[2017-10-17] MEDS: M.S. CONTIN 30 MG EXTENDED RELEASE PO SCH (08:20)
[2017-10-17] MEDS: DECADRON TAB PO SCH (08:52)
[2017-10-17] MEDS: ALBUMIN HUMAN 25%- 100ML 100 ML IV SCH (08:52)
[2017-10-17 12:20] VITALS: BP 143/66
== END 2017-10-17 14:05 | DRG 948 ==
LOC: UNDOADMIN 09:26 → MED/SURG 09:26
PROVIDERS: ADMIT Internal Medicine; ATTEND Internal Medicine
DX: G89.3 Neoplasm related pain (acute) (chronic) (principal); Z51.5 Encounter for palliative care; C61 Malignant neoplasm of prostate; C34.90 Malignant neoplasm of unspecified part of unspecified bronchus or lung; C79.31 Secondary malignant neoplasm of brain; C78.7 Secondary malignant neoplasm of liver and intrahepatic bile duct; Z66 Do not resuscitate; E44.0 Moderate protein-calorie malnutrition; F33.0 Major depressive disorder, recurrent, mild; R53.1 Weakness; E87.5 Hyperkalemia; R94.4 Abnormal results of kidney function studies; Z92.3 Personal history of irradiation
CPT/HCPCS: 36415; 80053; 85025; B5200; P9047; J8540